=== PATIENT | female | born 1965 ===

== ENCOUNTER 2023-06-12 01:00 | Day surgery (SDC) | payer BC ==
[~2023-06-12 01:00] MED LIST: Polymyxin B/Trimethoprim 10 ML Bottle EYERT SCH
[2023-06-12] MEDS: Ofloxacin 0.3% Ophth Soln 5 ML Bottle EYERT SCH (12:50)
[2023-06-12] MEDS: Brimonidine 0.2% Ophth Soln 5 ML Bottle EYERT SCH (12:55)
[2023-06-12] MEDS: Phenylephrine 2.5% Ophth Soln 2 ML Bot EYERT SCH (13:00)
[2023-06-12] MEDS ORDERED: Ondansetron 4 MG/2 ML SDV IVPUSH PRN (13:03)
[2023-06-12] MEDS: Tropicamide 1% Ophth Soln 3 ML Bottle EYERT SCH (13:10)
[2023-06-12] MEDS: Tetracaine HCl/PF 0.5% 4 ML Bottle EYEBOTH SCH (13:54)
[2023-06-12] MEDS: Lidocaine 1% PF 2 ML SDV INJECT SCH (14:25)
[2023-06-12] MEDS: Pilocarpine 4% Ophth Soln 15 ML Bot EYERT SCH (14:36)
[2023-06-12] MEDS: Cefuroxime 10 MG/ML SYRINGE EYERT SCH (14:36)
== END 2023-06-12 14:50 | disposition home or self-care (01) ==
LOC: JD.SDS 01:00
PROVIDERS: ATTEND Ophthalmology
DX: E10.36 Type 1 diabetes mellitus with diabetic cataract (principal); H25.813 Combined forms of age-related cataract, bilateral; H35.371 Puckering of macula, right eye; H43.821 Vitreomacular adhesion, right eye; H16.103 Unspecified superficial keratitis, bilateral; H16.223 Keratoconjunctivitis sicca, not specified as Sjogren's, bilateral; H02.831 Dermatochalasis of right upper eyelid; H02.834 Dermatochalasis of left upper eyelid; H21.81 Floppy iris syndrome; H31.091 Other chorioretinal scars, right eye; Z88.2 Allergy status to sulfonamides; Z88.0 Allergy status to penicillin; Z79.899 Other long term (current) drug therapy; E78.00 Pure hypercholesterolemia, unspecified
CPT/HCPCS: 66984; A9270; J0697; 00142; J3490; V2788

== ENCOUNTER 2023-07-17 12:16 | Day surgery (SDC) | payer BC ==
[~2023-07-17 12:16] MED LIST changes: +Polymyxin B/Trimethoprim 10 ML Bottle EYELF SCH; -Polymyxin B/Trimethoprim 10 ML Bottle EYERT SCH
[2023-07-17] MEDS: Ofloxacin 0.3% Ophth Soln 5 ML Bottle EYELF SCH (13:04)
[2023-07-17] MEDS: Brimonidine 0.2% Ophth Soln 5 ML Bottle EYELF SCH (13:09)
[2023-07-17] MEDS: Phenylephrine 2.5% Ophth Soln 2 ML Bot EYELF SCH (13:13)
[2023-07-17] MEDS: Tropicamide 1% Ophth Soln 3 ML Bottle EYELF SCH (13:18)
[2023-07-17] MEDS: Tetracaine HCl/PF 0.5% 4 ML Bottle EYEBOTH SCH (14:13)
[2023-07-17] MEDS: Lidocaine 1% PF 2 ML SDV INJECT SCH (14:33)
[2023-07-17] MEDS: Pilocarpine 4% Ophth Soln 15 ML Bot EYELF SCH (14:45)
[2023-07-17] MEDS: Cefuroxime 10 MG/ML SYRINGE EYELF SCH (14:45)
== END 2023-07-17 14:59 | disposition home or self-care (01) ==
LOC: JD.SDS 12:16
PROVIDERS: ATTEND Ophthalmology
DX: E10.36 Type 1 diabetes mellitus with diabetic cataract (principal); H25.812 Combined forms of age-related cataract, left eye; E78.2 Mixed hyperlipidemia; Z79.899 Other long term (current) drug therapy
CPT/HCPCS: 66984; A9270; J0697; J3490